=== PATIENT | male | born 1940 | race Caucasian/White ===

== ENCOUNTER 2016-08-24 10:16 | Day surgery (SDC) | payer OTHER ==
[2016-08-16 11:20] VITALS: BMI 28.0
--- NOTE | 2016-08-16 11:52 | PAT Medication Instructions ---
Service Date Aug 16, 2016. Current Home Medication List Acetaminophen (Tylenol), 1 TAB PO Q8 Amlodipine (Norvasc), 10 MG PO QAM Aspirin (Aspirin Ec), 81 MG PO QAM Medication Instructions For Your Scheduled Surgery - Check with surgeon/prescribing physician for instructions: Aspirin (Aspirin Ec), 81 MG PO QAM - Take the following medications the morning of surgery with a sip of water: Amlodipine (Norvasc), 10 MG PO QAM Acetaminophen (Tylenol), 1 TAB PO Q8 - Take the following medications as scheduled the night before surgery: Acetaminophen (Tylenol), 1 TAB PO Q8 If you have any questions please call us at [phone] (Mariah Rodriguez PA-C) or [phone] or [phone]
[2016-08-16 13:02] LABS: BASO % 0.2 %; BASO ABS # 0.01 K/uL (0-0.2); COMPLETE YES; EOS % 2.1 %; HEMATOCRIT 38.8 % (42-52); IG% 0.2 %; LYMPH % 27.9 %; LYMPH ABS # 1.46 K/uL (1.2-3.4); MEAN CELL VOLUME 81.9 fL (80-100); MEAN CORPUSCULAR HEMOGLOBIN 28.7 pg (25-34); MEAN CORPUSCULAR HGB CONC 35.1 g/dl (32-36); MONO % 9.8 %; NEUT % 59.8 %; PLATELET COUNT 288 K/uL (130-400); RED BLOOD COUNT 4.74 M/uL (4.7-6.1); WHITE BLOOD COUNT 5.23 K/uL (4.8-10.8)
[2016-08-16 13:35] LABS: BUN/CREATININE RATIO 17.7 (10-20); CREATININE 0.78 mg/dl (0.60-1.40); POTASSIUM 3.9 mmol/L (3.5-5.1)
[~2016-08-24] VITALS: Ht 172.7 cm; Wt 82.2 kg
[~2016-08-24 10:16] MED LIST: ACET-1256 PO; AMLO-114 PO; ASPI81TA28 PO; CIPROFLOXACIN / D5W 400 MG in PREMIXED IN D5W 200 ML IV SCH; LACTATED RINGER'S 1000ML 1,000 ML IV SCH
[2016-08-24] MEDS ORDERED: PROPOFOL IV EMULSION 10 MG/ML 20 ML VIAL IV ONE (10:24)
[2016-08-24] MEDS ORDERED: LIDOCAINE HCL 2% 2 ML VIAL (20MG/ML) ONE (10:24)
[2016-08-24] MEDS ORDERED: FENTANYL CITRATE INJ 50 MCG/1 ML 2 ML VIAL ONE (10:24)
[2016-08-24] MEDS ORDERED: MIDAZOLAM HCL 1 MG/ML 2ML VIAL ONE (10:24)
[2016-08-24] MEDS ORDERED: HYDROmorphone INJ 1 MG/ML SYR IV PRN (10:30)
[2016-08-24] MEDS ORDERED: MEPERIDINE HCL 25 MG/ML CARP IV PRN (10:30)
[2016-08-24] MEDS ORDERED: EpHEDrine SULFATE INJ 50 MG/ML AMP IV PRN (10:30)
[2016-08-24] MEDS ORDERED: ONDANSETRON INJ 2 MG/ML 2 ML VIAL IV PRN ×2 (10:30→12:45)
[2016-08-24] MEDS ORDERED: LABETALOL HCL IV 5 MG/ML 20ML IV PRN (10:30)
[2016-08-24] MEDS ORDERED: ATROPINE SULFATE 0.1 MG/ML 5ML SYR IV PRN (10:30)
[2016-08-24] MEDS ORDERED: FENTANYL CITRATE INJ 50 MCG/1 ML 2 ML VIAL IV PRN (10:30)
[2016-08-24 10:46] VITALS: BP 150/71; PULSE 71; TEMP 37; O2SAT 96; Ht 172.7 cm; Wt 82.2 kg
[2016-08-24] MEDS ORDERED: BACITRACIN 50000 UNIT VIAL ONE (11:07)
[2016-08-24] MEDS ORDERED: BUPIVACAINE 0.5 % 5 MG/1 ML MPF 30ML VIAL ONE (11:07)
--- NOTE | 2016-08-24 11:10 | History & Physical Bridge Note ---
H&P Re-Evaluation Bridge Note: I have examined the patient, reviewed the History & Physical and in the interval since the performance of the History & Physical I have noted the following changes of clinical significance: No changes noted pt marked, SO at bedside
[2016-08-24] MEDS ORDERED: OXYC-57 PO (11:24)
--- NOTE | 2016-08-24 11:27 | Discharge Instructions ---
Discharge Instructions Visit Reason for Visit: Left Ingunial Hernia Discharge Discharge Diagnosis / Problem: Inguinal hernia repair Discharge Goals Goal(s): Decrease discomfort Activity Recommendations Activity Limitations: as noted below Lifting Limitations: no more than 10 pounds Shower/Bathe: tomorrow Driving or Machine Use: resume 3 days after discharge Anesthesia . Post Anesthesia Instructions: If you have had General Anesthesia or IV Sedation: * Do not drive today. * Resume driving when surgeon permits. * Do not make important decisions or sign legal documents today. * Call surgeon for: 1. Temperature elevations greater than 101 degrees F. 2. Uncontrollable pain. 3. Excessive bleeding. 4. Persistent nausea and vomiting. 5. Medication intolerance (nausea, vomiting or rash). * For nausea and vomiting use only clear liquids such as: tea, soda, bouillon until nausea subsides, then gradually increase diet as tolerated. * If you have any concerns or questions, call your surgeon's office. If physician is unavailable and it is an emergency, call 911 or go to the nearest emergency room. . Instructions / Follow-Up Instructions / Follow-Up Dr. Maharaj in 1 week, call [phone] if you do not already have an appt or with any questions Ice left groin off and on alternating every 20 minutes until bedtime Diet Recommendations Recommended Home Diet: no limitations Pending Studies Studies pending at discharge: no Medical Emergencies . Who to Call and When: Medical Emergencies: If at any time you feel your situation is an emergency, please call 911 immediately. . Non-Emergent Contact Non-Emergency issues call your: Surgeon Call Non-Emergent contact if: you have a fever, temperature is above 101.5, your pain is not controlled, wound has increased redness . . "Provider Documentation" section prepared by Fernando Echeverria.
[2016-08-24] MEDS ORDERED: DEXAMETHASONE SOD INJ 4 MG/ML VIAL ONE (11:56)
[2016-08-24] MEDS ORDERED: ONDANSETRON INJ 2 MG/ML 2 ML VIAL ONE (11:56)
[2016-08-24] MEDS ORDERED: EpHEDrine SULFATE 50MG/5ML SYR ONE (11:58)
[2016-08-24] MEDS ORDERED: LACTATED RINGER'S 1000ML 1,000 ML IV SCH (12:35)
--- NOTE | 2016-08-24 12:36 | [facility] Post Operative Brief Note ---
Immediate Operative Summary Operative Date Aug 24, 2016. Pre-Operative Diagnosis Left inguinal hernia Post-Operative Diagnosis Same direct and lipoma cord Procedure(s) Performed Left Open Direct Inguinal Hernia Repair with marlex Mesh, excision Lipoma of Cord Surgeon Dr Maharaj Boiling House Oiler Surgeon(s) Fernando Echeverria PA-C Estimated Blood Loss 3.5ml Findings large direct defect and long lipoma cord Specimens A. Hernia sac and lipoma of cord
[2016-08-24] MEDS ORDERED: OXYCODONE/ACETAMINOPHEN 5-325 TAB PO PRN (12:45)
[2016-08-24] MEDS ORDERED: MoRPHine SULFATE 2 MG/ML CARP IV PRN (12:45)
--- NOTE | 2016-08-24 13:09 | OPERATIVE REPORT ---
DATE OF OPERATION: 08/24/2016 PREOPERATIVE DIAGNOSIS: Left inguinal hernia. POSTOPERATIVE DIAGNOSIS: Left direct inguinal hernia, large lipoma of the cord. PROCEDURE: Left direct inguinal hernia repair with Marlex mesh and excision lipoma of the cord. SURGEON: Dr. Maharaj. SURGICAL APPLIANCE FITTER: Nickolas Echeverria PA-C. SUMMARY: The patient was brought into the operating room theater, general anesthetic left lower quadrant prepped with Betadine scrubbing solution and properly draped. We used 0.5% Marcaine with epinephrine to preemptive analgesia two fingerbreadths medial anterior superior iliac crest, subfascially external oblique. An incision made parallel to the inguinal ligament, deepened through subcutaneous tissue, ligating some larger subcutaneously with 2-0 silk under the external oblique more local was used. External oblique was then opened along the course of its fibers down to the external ring. The patient had a significant amount of scar tissue at the external ring incarcerating some fatty tissue there. There was a fine inflammatous tissue coming anterior around the external ring, most likely branch of the nerve which we basically divided. We then elevated superiorly and inferiorly to the point that we were able then to get around the cord and its structures with our fingers down to the symphysis pubis, placed it over a Jose drain. We at this point then were able to identify that the patient had a very large lipoma of the cord that was going through the external ring. We took this all the way down to the internal ring where then ligate the base with 2-0 silk and returned it retroperitoneally. The patient also had a very direct defect pretty much the whole floor. We used 3-0 interrupted silk suture to bring some loose fibers of the transversalis fascia to get this out of the way. We brought in a sheet of Marlex mesh onto the field and sutured it onto the symphysis pubis with 2-0 Prolene shelving portion of inguinal ligament above the conjoined tendon to reconstruct the internal ring that would only accommodate the tip of a hemostat. More 0.5% Marcaine was injected prior to closing the external oblique which we closed over the cord and the mesh, completely exteriorizing the subcutaneous tissue and 2-0 Dexon subcutaneously, juan for skin edges. Dressing was applied. The procedure was tolerated well by the patient. Estimated blood loss 3.5 mL. The patient was taken to recovery room in good condition. I attest to the content of the Intraoperative Record and any orders documented therein. Any exceptions are noted below. DMITRI
--- NOTE | 2016-08-24 13:24 | Anesthesiology Progress Note ---
Anesthesia Post Op Note Date & Time Aug 24, 2016 at 13:24 Vital Signs Pain Intensity: 0 Vital Signs Past 12 Hours Date Time Temp Pulse Resp B/P Pulse Ox O2 Delivery O2 Flow Rate FiO2 08/24/16 13:17 36.4 08/24/16 13:14 67 17 08/24/16 13:14 66 17 95 08/24/16 13:13 131/69 08/24/16 13:09 70 27 08/24/16 13:09 70 27 97 08/24/16 13:08 141/74 08/24/16 13:04 70 19 08/24/16 13:04 69 19 130/67 98 08/24/16 12:59 72 13 08/24/16 12:59 72 13 97 08/24/16 12:58 127/68 08/24/16 12:54 73 16 96 08/24/16 12:54 73 16 08/24/16 12:53 128/68 08/24/16 12:49 74 24 95 08/24/16 12:49 76 24 08/24/16 12:48 97/69 08/24/16 12:44 75 16 08/24/16 12:44 75 16 97 08/24/16 12:43 121/62 08/24/16 12:39 77 19 98/66 96 08/24/16 12:39 36.7 76 18 134/62 97 Nasal Cannula 4 08/24/16 12:39 77 19 08/24/16 10:46 37 71 20 150/71 96 Room Air Notes Mental Status: alert / awake / arousable, participated in evaluation Pt Amnestic to Procedure: Yes Nausea / Vomiting: adequately controlled Pain: adequately controlled Airway Patency, RR, SpO2: stable & adequate BP & HR: stable & adequate Hydration State: stable & adequate Anesthetic Complications: no major complications apparent
[2016-08-24 13:25] VITALS: BP 157/79; PULSE 69; TEMP 36.5; O2SAT 95
[2016-08-24 13:55] VITALS: BP 146/65; PULSE 73; O2SAT 92
[2016-08-24 14:15] VITALS: BP 153/70; PULSE 73; O2SAT 93
== END 2016-08-24 14:40 | disposition home or self-care (01) ==
LOC: C.ACU 10:16
PROVIDERS: ATTEND Surgery
DX: K40.90 Unilateral inguinal hernia, without obstruction or gangrene, not specified as recurrent (principal); D17.6 Benign lipomatous neoplasm of spermatic cord; F41.9 Anxiety disorder, unspecified; I35.1 Nonrheumatic aortic (valve) insufficiency; M19.90 Unspecified osteoarthritis, unspecified site; I51.9 Heart disease, unspecified; E78.5 Hyperlipidemia, unspecified; I10 Essential (primary) hypertension; Z98.890 Other specified postprocedural states; Z88.1 Allergy status to other antibiotic agents; Z79.82 Long term (current) use of aspirin